=== PATIENT | female | born 1995 | race Caucasian/White ===

== ENCOUNTER 2019-04-21 04:17 | Inpatient (IN) | payer OTHER ==
[2019-04-20 17:42] LABS: RPR Titer ND
[2019-04-20 17:46] LABS: Urine Appearance CLOUDY; Urine Blood NEGATIVE (NEG); Urine Color DK YELLOW; Urine Glucose NEGATIVE (NEG); Urine Protein TRACE (NEG); Urine Specific Gravity >=1.030 (1.005-1.030)
[2019-04-20 17:47] LABS: Absolute Lymphocytes (CBC) 1.5 K/uL (0.7-4.9); Absolute Monocytes 0.7 K/uL (0.1-1.3); Absolute Neutrophil 4.9 K/uL (1.8-8.0); Basophils % 0.6 % (0-1.3); Eosinophils % 0.3 % (0-4.4); Lymphocytes % 21.6 % (15.3-44.8); MPV 12.3 fL (7.6-11.3); Monocytes % 9.7 % (3.3-12.3)
[2019-04-20 17:50] LABS: Protime INR 0.91
[2019-04-20 18:09] LABS: Urine Microscopic Reflex ORDER UMIC
[2019-04-20 19:05] LABS: Urine Bacteria >50 /HPF (<20); Urine Bilirubin NEGATIVE (NEG); Urine Culture Reflex Order REFLEXED; Urine Mucus 2+ /HPF (NONE SEEN); Urine RBC <5 /HPF (NONE SEEN)
[2019-04-20 20:52] LABS: RPR (Rapid Plasma Reagin) NON-REACT (NON-REACT)
[~2019-04-21 04:17] MED LIST: CEFAZOLIN/SWI 2gm 2 GM/20 ML SYR IV SCH; CEFAZOLIN/SWI 2gm 2 GM/20 ML SYR IVP SCH; Ringers Lactate 1,000 ML IV PRN
[2019-04-21] MEDS ORDERED: NA CIT/CITRIC AC 30 ML ORAL UDC PO ONE (04:26)
[2019-04-21] MEDS ORDERED: METOCLOPRAMIDE 10 MG/2mL INJ IV SCH (05:00)
[2019-04-21] MEDS ORDERED: Ringers Lactate 1,000 ML IV SCH (05:00)
[2019-04-21] MEDS ORDERED: FAMOTIDINE 20 MG/2 ML VIAL IV ONE (05:00)
[2019-04-21 05:06] VITALS: BMI 32.5
[2019-04-21] MEDS ORDERED: CEFAZOLIN/SWI 2gm 2 GM/20 ML SYR ONE (06:49)
[2019-04-21] MEDS ORDERED: OXYTOCIN 10 UNIT/ML ML IV ONE (07:30)
[2019-04-21] MEDS ORDERED: MORPHINE SULFATE/PF 1 MG/ML (10 ML AMP) ONE (07:30)
[2019-04-21] MEDS ORDERED: NS 0.9% VIAL 10 ML ONE (07:50)
[2019-04-21] MEDS ORDERED: Phenylephrine HCl 10 MG/ML 1 ML VIAL ONE (07:50)
[2019-04-21] MEDS ORDERED: METHYLERGONOVINE 0.2MG/ML AMP IM ONE (07:56)
[2019-04-21] MEDS ORDERED: DIPHENHYDRAMINE 25 MG TAB/CAP PO PRN (08:13)
[2019-04-21] MEDS ORDERED: ONDANSETRON 4 MG/2 ML VIAL IV PRN (08:13)
[2019-04-21] MEDS ORDERED: KETOROLAC 30 MG/ML INJ IM PRN (08:13)
[2019-04-21] MEDS ORDERED: BISACODYL 10 MG RECTAL SUPP RECT PRN (08:13)
[2019-04-21] MEDS ORDERED: ONDANSETRON 4 MG (ODT) TAB PO PRN (08:13)
[2019-04-21] MEDS ORDERED: Oxycodone HCl/Acetaminophen 1 TAB TAB PO PRN ×2 (08:13)
[2019-04-21] MEDS ORDERED: ACETAMINOPHEN 500 MG TAB PO PRN ×2 (08:13)
[2019-04-21] MEDS ORDERED: ONDANSETRON 4 MG/2 ML VIAL ONE (08:23)
[2019-04-21] MEDS ORDERED: CEFAZOLIN/SWI 1gm 1 GM/10 ML SYR IV SCH (08:45)
[2019-04-21] MEDS ORDERED: OXYTOCIN/LR 20 UNIT/1,000 ML BAG IV SCH (09:00)
[2019-04-21] MEDS: D5LR 1,000 ML with OXYTOCIN 20 UNIT IV SCH ×2 (14:30)
[2019-04-21] MEDS ORDERED: CEFAZOLIN/SWI 2gm 2 GM/20 ML SYR IV SCH (16:00)
[2019-04-21] MEDS ORDERED: Ringers Lactate 2,000 ML IV ONE (17:38)
[2019-04-22] MEDS: D5LR 1,000 ML with OXYTOCIN 20 UNIT IV SCH ×2 (05:41)
[2019-04-22] MEDS: IBUPROFEN 200 MG TAB PO PRN ×2 (09:01→18:12)
--- NOTE | 2019-04-22 12:09 | RAD REPORT ---
EXAM DESCRIPTION: RAD - Abdomen 1 View (KUB) - 04/21/2019 11:51 am CLINICAL HISTORY: . Assess presentation FINDINGS: Examination could not be dictated after it was finished due to technical issues Breech . Spine maternal right
--- NOTE | 2019-04-23 04:24 | DS ---
Hospital Course: Donna Bills underwent primary section for breech presentation and del ivered a 7 pounds 14 ounces male , Apgars 9 and 9. Mild uterine hypertonus. Estimated blood l oss 850-900 cc. Postoperatively, she is doing quite well, is afebrile, output is good, vital signs a re all normal. We will discontinue Weinberg and IV. Ambulate the patient today and if she does well, s end her home tomorrow. Full instructions given to report any temperature elevation of 100 degrees or greater, severe pain, heavy bleeding, or any other type of abnormalities. No post spinal block prob lems. Dismissed with tramadol for analgesia, although she may like to take Motrin instead. She has had her Tdap immunization. H and H with no basic change. No complaints or problems this morning. I n my absence, if she has any problems or questions, she will see Dr. Power tomorrow morning. Final Diagnoses: 1.Term uterine at 39 weeks. 2.Breech presentation. 3.Primary section, low transverse cervical. 4.Spinal block anesthesia. 5.Mild uterine hypertonus. PHILOMENAC/MODL Voice ID: [id number] Report ID: [id number]
[2019-04-23 07:43] VITALS: BP 124/85; TEMP 98.4
== END 2019-04-23 09:35 | disposition home or self-care (01) | DRG 788 ==
LOC: 2ND-WC 04:17
PROVIDERS: ADMIT Specialist; ATTEND Specialist
PROC: 10D00Z1 Extraction of Products of Conception, Low, Open Approach (ICD-10-PCS; principal; 2019-04-21 07:30)
DX: O32.1XX0 Maternal care for breech presentation, not applicable or unspecified (principal); O62.2 Other uterine inertia; Z3A.39 39 weeks gestation of pregnancy; Z37.0 Single live birth
CPT/HCPCS: 36415; 74018; 76815; 81003; 81015; 85014; 85025; 85610; 85730; 86592; 86850; 86900; 86901; 87077; 87086; 87088; 87186; 88307; J0690; J2210; J2370; J2405; J2590; J2765